=== PATIENT | female | born 1995 | race Caucasian/White ===

== ENCOUNTER 2024-07-18 09:07 | Outpatient (CLI) | payer OTHER, SELFPAY ==
--- NOTE | ~2024-07-18 | MR_ITS ---
MRI of the left elbow CLINICAL HISTORY: Medial epicondylitis TECHNIQUE: Proton-density and proton-density fat-sat images were acquired in the axial, coronal, and sagittal planes. FINDINGS: Ulnar collateral ligament is intact. Radial collateral ligament and the lateral ulnar colla teral ligament are intact. There is minimal tendinosis of the common flexor tendon origin. Common ext ensor tendon origin also demonstrates minimal tendinosis. Bone marrow signals are unremarkable. No osseous or articular abnormality of the elbow. No joint effu han. Biceps, brachialis, and triceps tendons are intact. Visualized muscle signals are unremarkable. Subcu taneous soft tissues are unremarkable. IMPRESSION: Minimal tendinosis of the common flexor tendon origin. Reviewed, dictated and finalized at location M.
== END 2024-07-18 09:08 | disposition home or self-care (01) ==
PROVIDERS: PCP Orthopaedic Surgery; Visit Provider Orthopaedic Surgery
DX: M77.02 Medial epicondylitis, left elbow (principal)
CPT/HCPCS: 73221

== ENCOUNTER 2024-08-22 15:30 | Outpatient (RCR) | payer OTHER, SELFPAY ==
--- NOTE | 2024-05-30 16:27 | OPREHPOC ---
Outpatient Therapy Plan of Care This is a Multidisciplinary Plan of Care that may contain components documented by all disciplines (PT, OT, and ST.) PT Problem 1 PT Problem #1 Knowledge Deficit PT Goal 1 Goal / Goal Update *indep with HEP Target Visit 8 PT Problem 2 PT Problem #2 Pain PT Goal 1 Goal / Goal Update *pt report pain rating at worst of 2/10 Target Visit 8 PT Problem 3 PT Problem #3 Impaired Strength PT Goal 1 Goal / Goal Update pt perform without an increase in pain reported: bilateral UE box lift from waist/floor height 50# Target Visit 8 PT Goal 2 Goal / Goal Update * coal trammer dynamometer 3rd slot on L 50# Target Visit 8
--- NOTE | 2024-05-30 16:27 | PTOPEVAL1 ---
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 Pt is R hand dominant; trying to use her R arm more and rest her L arm; activity: is working the light duty with lifting restriction of 10#, work 4 hour shifts at [employer]; Reported Pain Level Pain Score Self Report Additional Pain Score Comments pain in the past week -07/06; achey feeling; posterior lateral olecranon pain is less than with initial injury; increase pain: activity decrease pain: rest, ice, hold elbow straight and behind her body sleeping is OK now, initially elbow bothered her with sleeping; no longer taking any over the counter meds for elbow Assessment PT Clinical Summary Dayna has the diagnosis of L medial epicondylitis, onset with lifting at work in January. She is currently working with a lifting restriction of 10# Her job requirement is lifting up to 50#. Self assessment with the DASH- long form is 8% limitation in activity level. She is R hand dominant. With the evaluation: she has tenderness over medial ulnar groove of elbow; bilateral maximum UE lifting box test from waist/floor height, weight to 25# with report of pinching in medial- posterior elbow; active L shoulder, elbow, wrist and hand motions with full ROM and no pain with active motions; pain increased with strength testing and lifting. Skilled PT services are indicated for modalities to decrease pain and nerve irritation, therapeutic exercises to increase strength as tolerated, with education for HEP and body mechanics. Plan of Care Interventions Electrical Stimulation,Hot Pack/Cold Pack,Manual Therapy,Neuro Re-education,Patient/Caregiver Education,Therapeutic Activities,Therapeutic Exercise,Ultrasound,Other Other Interventions taping PT Services Indicated Yes Treatment Frequency and 1-2x/wk for 8 visits Duration These treatments will address the objective and functional deficits as defined above. The patient will be advanced safely and appropriately in order for the patient to progress towards his/her prior level of function. Additional exercises will be introduced and as well as a comprehensive home exercise program upon discharge, if needed, ?to ensure carryover of functional gains achieved in the clinic. This treatment plan has been reviewed and agreement upon by the patient.
--- NOTE | 2024-06-29 16:18 | OPREHPOC ---
Outpatient Therapy Plan of Care This is a Multidisciplinary Plan of Care that may contain components documented by all disciplines (PT, OT, and ST.) PT Problem 1 PT Problem #1 Knowledge Deficit PT Goal 1 Goal / Goal Update *indep with HEP --------- 06-29-24 progress goal met, continue towards to progress education and HEP Target Visit 12 PT Problem 2 PT Problem #2 Pain PT Goal 1 Goal / Goal Update *pt report pain rating at worst of 2/10 --------- 06-29-24 progress goal not met; 5/10 at worst continue towards goal Target Visit 12 PT Problem 3 PT Problem #3 Impaired Strength PT Goal 1 Goal / Goal Update pt perform without an increase in pain reported: bilateral UE box lift from waist/floor height 50# --------- 06-29-24 progress goal not met improved to 45# continue towards goal Target Visit 12 PT Goal 2 Goal / Goal Update * drum cleaner dynamometer 3rd slot on L 50# --------- 06-29-24 progress goal not met, continue towards goal Target Visit 12
--- NOTE | 2024-06-29 16:19 | PTOPPROG ---
Assessment and note entered by Mona Oscar, PT Evaluation Information Assessment Status Progress ICD-10 Condition Codes (PT) Pain in left elbow M25.522 Other ICD-10 Condition Codes ( M70.822 soft tissue disorder L upper arm PT) Onset 02-11-24 Subjective Information things are about the same; is still working 2 jobs , about 55-60 hours/week; see the dr next week. want to continue therapy to see if it can get better. Assessment PT Clinical Summary Dayna has received 8 PT sessions. 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 Continue PT treatment. Plan of Care Interventions Electrical Stimulation,Hot Pack/Cold Pack,Manual Therapy,Neuro Re-education,Patient/Caregiver Education,Therapeutic Activities,Therapeutic Exercise,Ultrasound,Other Other Interventions taping PT Services Indicated Yes Treatment Frequency and 1-2x/wk for 8 visits Duration These treatments will address the objective and functional deficits as defined above. The patient will be advanced safely and appropriately in order for the patient to progress towards his/her prior level of function. Additional exercises will be introduced and as well as a comprehensive home exercise program upon discharge, if needed, ?to ensure carryover of functional gains achieved in the clinic. This treatment plan has been reviewed and agreement upon by the patient.
--- NOTE | 2024-07-10 15:32 | PCPTNOTE ---
Pt canceled today after having MRI and wanting to wait for results from MD before coming back to [facility].
--- NOTE | 2024-07-19 16:09 | PCPTNOTE ---
Pt no showed visit today.
--- NOTE | 2024-08-22 16:24 | OPREHPOC ---
Outpatient Therapy Plan of Care This is a Multidisciplinary Plan of Care that may contain components documented by all disciplines (PT, OT, and ST.) PT Problem 1 PT Problem #1 Knowledge Deficit PT Goal 1 Goal / Goal Update *indep with HEP --------- 06-29-24 progress goal met, continue towards to progress education and HEP 08-22-24 d/c goal met Target Visit 12 Progress Met PT Problem 2 PT Problem #2 Pain PT Goal 1 Goal / Goal Update *pt report pain rating at worst of 2/10 --------- 06-29-24 progress goal not met; 5/10 at worst continue towards goal 08-22-24 d/c goal not met 5/10 at worst Target Visit 12 Progress Not Met PT Problem 3 PT Problem #3 Impaired Strength PT Goal 1 Goal / Goal Update pt perform without an increase in pain reported: bilateral UE box lift from waist/floor height 50# --------- 06-29-24 progress goal not met improved to 45# continue towards goal 25 d/c goal not met, 35# Target Visit 12 Progress Not Met PT Goal 2 Goal / Goal Update * supervisor last model department dynamometer 3rd slot on L 50# --------- 06-29-24 progress goal not met, continue towards goal 25 d/c goal not met, 40$ Target Visit 12 Progress Not Met
--- NOTE | 2024-08-22 16:24 | PTOPDC ---
Assessment and note entered by Mona Oscar, PT Assessment Status Discharge ICD-10 Condition Codes (PT) Pain in left elbow M25.522 Other ICD-10 Condition Codes ( M70.822 soft tissue disorder L upper arm PT) Onset 02-11-24 Subjective Information feel like elbow is about the same; after the injection, could not tell any difference in the pain; continue to work with the 10# lifting restriction; doing the exercises and stretching at home; have a follow up appointment with September 11; Reported Pain Level Pain Score Self Report Additional Pain Score Comments pain range in the past week ; ache in medial elbow increase pain: opening jar, squeeze and pressure on hand, lift a bag decrease pain: rest arm, ultrasound helps a little not tell a difference with tape, ice or over the counter meds; Assessment PT Clinical Summary Dayna has received a total of 12 PT sessions, from May 30 to today. Compared to the last assessment: pain is the same at ; self assessment with DASH rating form 17 to 21 % limitation in activity level; gymnastics coach or instructor dynamometer 3rd slot L 45 to 40#; bilateral UE box lift, waist/floor height: maximum weight: gradual increase from 45 to 35#, stopped due to elbow feels like tugging and pressure on it ; active L elbow, wrist and hand ranges are WNL; tenderness with palpation over medial elbow, superior to elbow crease. Education completed for HEP and stretching. The goals were not achieved. Discharge PT services due to not having made any progress or improvements with therapy. Plan of Care PT Services Indicated No
== END 2024-08-23 10:31 | disposition home or self-care (01) ==
LOC: ANHPT 15:30
PROVIDERS: Visit Provider Orthopaedic Surgery
DX: M93.922 Osteochondropathy, unspecified, left upper arm (principal); M70.822 Other soft tissue disorders related to use, overuse and pressure, left upper arm; X50.3XXA Overexertion from repetitive movements, initial encounter
CPT/HCPCS: 97012; 97014; 97035; 97110; 97140; 97161; 97530; G0283

== ENCOUNTER 2025-02-28 08:45 | Outpatient (RCR) | payer OTHER, SELFPAY ==
--- NOTE | 2024-11-30 17:13 | OTOPEVAL1 ---
Assessment and note entered by Judit Combs, OT Evaluation Information Assessment Status Evaluation Diagnosis L medial epicondylitis ICD-10 Condition Codes (OT) Pain in left elbow M25.522,Generalized muscle weakness M62.81 Onset 01/2024 Subjective Information Pt. who works at [employer], reports onset last year 01/2024 while repeatedly lifting heavy boxes, particularly overhead. Pt. reports she has been on light duty since. Pt. reports she has experience with PT with earlier this year which elevated pain for some time. Per chart, pt.'s recent MRI reports mild medial epicondylitis and denies relief w/ cortisone injection on07/27/24. Pt started on Meloxicam and states this medication seems to be giving her some relief. Pt. reports she feels weak, and is concerned about return to prior level of performance require for work tasks. Reported Pain Level Pain Score 0: Self Report Additional Pain Score Comments pt. reports she has not experienced increased pain from injury in the last month Assessment OT Clinical Summary Pt. is 29 year old F, referred to outpatient therapy for L medial epicondylitis and L UE weakness. She reports a work injury 02/12/24, due to repeated lifting of heavy boxes. Pt. reports history of attending physical therapy, cortisone injection, rest and work restrictions, and use of anti-inflammatory medication, with MRI 06/2024 confirming minimal tendinosis of the common flexor tendon origin. 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 Pt. will benefit from skilled OT services to facilitate return of functional strength and capacity for return to increased tolerance for and performance in work related tasks, while addressing possible return of symptoms with therapeutic modalities and exercises. Plan of Care Interventions Therapeutic Exercise,Manual Therapy,Therapeutic Activities,Hot Pack/Cold Pack,Electrical Stimulation,Self-Care/Home Management,Ultrasound, Paraffin OT Services Indicated Yes Treatment Frequency and 2 x/ week for 8 visits Duration These treatments will address the objective and functional deficits as defined above. The patient will be advanced safely and appropriately in order for the patient to progress towards his/her prior level of function. Additional exercises will be introduced and as well as a comprehensive home exercise program upon discharge, if needed, ?to ensure carryover of functional gains achieved in the clinic. This treatment plan has been reviewed and agreement upon by the patient.
--- NOTE | 2024-11-30 17:14 | OPREHPOC ---
Outpatient Therapy Plan of Care This is a Multidisciplinary Plan of Care that may contain components documented by all disciplines (PT, OT, and ST.) OT Problem 1 OT Problem #1 Knowledge Deficit OT Goal 1 Goal / Goal Update Pt. will demonstrate independence in HEP Pt. will demonstrate proper lifting techniques and use of ergonomic techniques to reduce risk of return of injury Target Visit 8 OT Problem 2 OT Problem #2 Pain OT Goal 1 Goal / Goal Update Pt. will report < 1/10 pain with increased therapeutic and functional strengthening and activities Target Visit 8 OT Problem 3 OT Problem #3 Impaired Strength OT Goal 1 Goal / Goal Update Pt. will demonstrate increased strength, as demonstrated by 50 lbs of gross fox raiser strength in R and L UE Target Visit 8
--- NOTE | 2024-12-04 16:36 | PCOTNOTE ---
Called Dr. Sanchez's office to confirm pt.'s order note for Work Hardening, which we do not offer, but can provide pt. with treatment for symptom management and improvement while increasing functional strengthening for increasing tolerance for work duties. Spoke with R[facility], who stated they would confirm with Dr. Sanchez and patient, and call back.
--- NOTE | 2024-12-29 16:33 | OTOPPROG ---
Assessment and note entered by Judit Combs OT Progress Information Assessment Status Progress Diagnosis L medial epicondylitis ICD-10 Condition Codes (OT) Pain in left elbow M25.522,Generalized muscle weakness M62.81 Onset 01/2024 Subjective Information Pt. who works at [employer], reports onset last year 01/2024 while repeatedly lifting heavy boxes, particularly overhead. Pt. continues to be on light duty at work. Pt started on Meloxicam and states this medication seems to be giving her some relief. Previously pt. felt numbness and squeezing sensation, but now feels sore and aching, which she attributes to more exercise and activity. Pt. reports she still feels stronger, but weaker than her baseline, and continues and is concerned about return to prior level of performance require for work tasks. Assessment OT Clinical Summary Pt. is 29 year old F, evaluated for progress in outpatient therapy for L medial epicondylitis and L UE weakness. She reports a work injury 02/12/24, due to repeated lifting of heavy boxes. Pt. 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 Unclear if pt. is compliant with HEP, and recently injured R wrist, requiring continued modifications to exercises. Pt. will benefit from continued skilled OT services to facilitate return of functional strength and capacity for return to increased tolerance for and performance in work related tasks, while addressing possible return of symptoms with therapeutic modalities and exercises. Plan of Care Interventions Therapeutic Exercise,Manual Therapy,Therapeutic Activities,Hot Pack/Cold Pack,Electrical Stimulation,Self-Care/Home Management,Ultrasound, Paraffin OT Services Indicated Yes Treatment Frequency and 2 x/ week for 8 visits Duration These treatments will address the objective and functional deficits as defined above. The patient will be advanced safely and appropriately in order for the patient to progress towards his/her prior level of function. Additional exercises will be introduced and as well as a comprehensive home exercise program upon discharge, if needed, ?to ensure carryover of functional gains achieved in the clinic. This treatment plan has been reviewed and agreement upon by the patient.
--- NOTE | 2025-02-12 15:55 | OTOPPROG ---
Assessment and note entered by Faustino Jean, OTR/Lori, CHT OT Progress Update 02/12/25 Assessment Status Progress Diagnosis L medial epicondylitis ICD-10 Condition Codes (OT) Pain in left elbow M25.522,Generalized muscle weakness M62.81 Onset 01/2024 Subjective Information HPI: Pt. who works at [employer], reports onset of elbow pain last year 01/2024 while repeatedly lifting heavy boxes, particularly overhead. Patient reports improved functional use of her left UE for ADLs and household tasks, such as dishes, with less pain. Patient reports she continues to feel stronger, but that she is still limited with heavier tasks, such as lifting a bag of mulch for example. Pt. continues to be on light duty at work. She reports light tasks are getting easier, but that as she progresses the amount of weight she is using to work out with her soreness increases. Assessment OT Clinical Summary Patient presents for OT progress update. She demonstrates improvements in gross left UE strength and left UE use for light tasks. She continues to experience exacerbations of pain with heavier lifting. Today tests for medial epicondylitis were negative, instead she displays positive ulnar nerve compression symptoms at the cubital tunnel. Reviewed HEP for patient to continue to work on postural stretching/ strengthening, nerve glides, and wrist/pullman car clerk strengthening. Reviewed activity modifications and exercise modifications to reduce ulnar nerve strain in the elbow. Continued skilled OT services indicated to facilitate reduced pain, improved functional strength, improved body mechanics for optimal functional UE use for work tasks and ADLs. Plan of Care Interventions Therapeutic Exercise,Manual Therapy,Therapeutic Activities,Hot Pack/Cold Pack,Electrical Stimulation,Self-Care/Home Management,Ultrasound, Paraffin OT Services Indicated Yes Treatment Frequency and 2 x/ week for 8 visits Duration These treatments will address the objective and functional deficits as defined above. The patient will be advanced safely and appropriately in order for the patient to progress towards his/her prior level of function. Additional exercises will be introduced and as well as a comprehensive home exercise program upon discharge, if needed, ?to ensure carryover of functional gains achieved in the clinic. This treatment plan has been reviewed and agreement upon by the patient.
--- NOTE | 2025-02-12 15:55 | OPREHPOC ---
Outpatient Therapy Plan of Care This is a Multidisciplinary Plan of Care that may contain components documented by all disciplines (PT, OT, and ST.) OT Problem 1 OT Problem #1 Knowledge Deficit OT Goal 1 Goal / Goal Update Pt. will demonstrate independence in HEP Pt. will demonstrate proper lifting techniques and use of ergonomic techniques to reduce risk of return of injury Progress 12/29/24 1) Goal not met, continue 2) Goal not met, continue ---OT POC UPDATE 02/12/25--- 1) Goal not met, continue 2) Goal not met, continue Target Visit 24 Progress Not Met OT Problem 2 OT Problem #2 Pain OT Goal 1 Goal / Goal Update Pt. will report < 1/10 pain with increased therapeutic and functional strengthening and activities Progress 12/29/24 1) Goal not met, continue ---OT POC UPDATE 02/12/25--- 1) Progressing, but not met, continue to treat pain Target Visit 24 Progress Not Met OT Problem 3 OT Problem #3 Impaired Strength OT Goal 1 Goal / Goal Update Pt. will demonstrate increased strength, as demonstrated by 50 lbs of gross caregiver assisted living strength in R and L UE Progress 12/29/24 1) Goal not met, continue ---OT POC UPDATE 02/12/25--- 1) Progressing, but not met, continue goal Target Visit 16 Progress Not Met
== END 2025-02-28 23:59 | disposition home or self-care (01) ==
LOC: ANHOT 08:45
PROVIDERS: Visit Provider Orthopaedic Surgery
DX: M77.02 Medial epicondylitis, left elbow (principal)
CPT/HCPCS: 97018; 97035; 97110; 97112; 97140; 97165; 97530